=== PATIENT | female | born 1970 | race Caucasian/White ===

== ENCOUNTER → 2018-07-26 09:17 | Outpatient (CLI) | payer BC, SELFPAY ==
[2018-07-26 12:52] LABS: Cholesterol 156 mg/dL (200); High Density Lipoprotein 47 mg/dL; Thyroid Stim Hormone (TSH) 0.95 uIU/mL (0.358-3.74); Triglycerides 63 mg/dL; Very Low Density Lipoprotein 13 mg/dL (5-40)
[2018-07-26 12:54] LABS: Vitamin D,25 Hydroxy 24.2 ng/mL (29.95-100.01)
[2018-08-01 15:48] LABS: HPV HC, High Risk Negative (Negative)
== END ==
PROVIDERS: Visit Provider Obstetrics & Gynecology
DX: E55.9 Vitamin D deficiency, unspecified (principal); R53.83 Other fatigue; Z12.4 Encounter for screening for malignant neoplasm of cervix
CPT/HCPCS: 36415; 80061; 82306; 84443; 87624; 88175; G0145

== ENCOUNTER → 2018-09-29 17:06 | Outpatient (CLI) | payer BC, SELFPAY ==
--- NOTE | 2018-09-29 17:08 | BI_ITS ---
MAMMOGRAPHY - BILATERAL SCREENING REASON FOR EXAM: Female, 48 years old. Routine annual screening examination. PERTINENT HISTORY: Non-contributory. TECHNIQUE: Digital bilateral breast khadra (3D mammographic acquisition) in the CC and MLO projections. 2-D mediolateral oblique (MLO) and craniocaudad (CC) views of both breasts were obtained. CAD: Full Field Digital Mammography with Computer Added Detection was performed. COMPARISON: Comparison is made with prior study dated September 28, 2017. FINDINGS: Breast Composition: The breasts are heterogeneously dense, which may obscure small masses. There are no dominant masses or suspicious calcifications. No other significant abnormalities are identified. There has been no significant change since the prior study. BI/SCREENING MAMM (CAD), BILAT IMPRESSION: Stable bilateral screening mammogram. Yearly follow-up mammogram recommended. (A) ASSESSMENT CATEGORY: BIRADS Category 1: Negative. A letter regarding these results will be sent to the patient by the facility within 30 days. Approximately 10% of breast cancers are not detected by mammography. A normal mammogram should not delay biopsy of a clinically suspicious abnormality. [id number] Electronically Signed: Hima Irby MD at 9:19 EST , Service support ,
== END ==
PROVIDERS: Referring Provider Obstetrics & Gynecology; Visit Provider Obstetrics & Gynecology
DX: Z12.31 Encounter for screening mammogram for malignant neoplasm of breast (principal)
CPT/HCPCS: 77063; 77067

== ENCOUNTER → 2019-08-09 10:06 | Outpatient (CLI) | payer BC, SELFPAY ==
--- NOTE | 2019-08-09 09:30 | CER_PTH ---
PATIENT: KRISTIN IVERSON LOC: [facility] U#:[id number] AGE/SX: 54/F ROOM: RE08/09/[address]: Dr. Arelis Encarnacion MD : 1970 BED: DIS: SPEC #: [id number] RECD: 08/09/19 10:51 STATUS: ARBEN MICHELLE #: [id number] OTTONIEL: 08/09/19 09:[address]: Arelis Tovar DEPT: SURGICAL PATHOLOGY RECD BY: Rolando Navarro ENTERED: 08/09/19 13:37 SP TYPE: CERV OTHR DR: No Primary Care Phys Tissues: Uterine cervix, NOS Procedures: Surgery Specimen Level IV HEADER OPERATION: Cervical polypectomy PRE-OP DIAGNOSIS: Polypectomy TISSUE SUBMITTED: Polypectomy MICROSCOPIC DIAGNOSIS Cervical polypectomy: Inflamed benign ectocervical polyp. SJ:akira 08/10/19 MICROSCOPIC DESCRIPTION Slides are reviewed. GROSS DESCRIPTION Received in fixative is one container labeled with the patient's name and designated polypectomy. The specimen consists of an irregular fragment of echols tissue measuring 0.2 x 0.2 x 0.1 cm. The specimen is totally submitted in one cassette. / AM:akira 08/09/19 TC:5 CPT: [id number]
[2019-08-09 11:14] LABS: Vitamin D,25 Hydroxy 33.2 ng/mL (29.95-100.01)
== END ==
PROVIDERS: Referring Provider Obstetrics & Gynecology; Visit Provider Obstetrics & Gynecology
DX: E55.9 Vitamin D deficiency, unspecified (principal); N84.1 Polyp of cervix uteri
CPT/HCPCS: 36415; 82306; 88305

== ENCOUNTER → 2019-10-16 07:00 | Outpatient (CLI) | payer BC, SELFPAY ==
--- NOTE | 2019-10-16 07:01 | BI_ITS ---
MAMMOGRAPHY - BILATERAL SCREENING REASON FOR EXAM: Female, 49 years old. Routine annual screening examination. PERTINENT HISTORY: Non-contributory. TECHNIQUE: Digital bilateral breast ryan (3D mammographic acquisition) in the CC and MLO projections. 2-D mediolateral oblique (MLO) and craniocaudad (CC) views of both breasts were obtained. CAD: Full Field Digital Mammography with Computer Added Detection was performed. COMPARISON: Comparison is made with prior study dated September 29, 2018 and September 28, 2017. FINDINGS: Breast Composition: The breasts are heterogeneously dense, which may obscure small masses. There are no dominant masses or suspicious calcifications. No other significant abnormalities are identified. There has been no significant change since the prior study. BI/SCREEN MAMM (CAD) W/RYAN BILAT IMPRESSION: Stable bilateral screening mammogram. Yearly follow-up mammogram recommended. (A) ASSESSMENT CATEGORY: BIRADS Category 1: Negative. A letter regarding these results will be sent to the patient by the facility within 30 days. Approximately 10% of breast cancers are not detected by mammography. A normal mammogram should not delay biopsy of a clinically suspicious abnormality. [id number] Electronically Signed: Hima Irby, at 9:05 EST , Service support ,
== END ==
PROVIDERS: Referring Provider Obstetrics & Gynecology; Visit Provider Obstetrics & Gynecology
DX: Z12.31 Encounter for screening mammogram for malignant neoplasm of breast (principal)
CPT/HCPCS: 77063; 77067

== ENCOUNTER → 2020-03-30 09:54 | Outpatient (CLI) | payer BC, SELFPAY ==
[2020-03-30 10:07] LABS: Absolute Lymphocyte Count 1.28 X10^3/uL (0.83-4.51); Absolute Neutrophil Count 2.6 X10^3/uL (2.0-7.7); Basophil# 0.04 X10^3/uL; Basophil% 0.9 % (0-1); Eosinophil# 0.15 X10^3/uL; Eosinophils% 3.4 % (0-5); Hematocrit 41.5 % (37-47); Hemoglobin 14.1 g/dL (12.0-15.0); Lymphocyte # 1.28 X10^3/ul (4.0); Lymphocyte % 28.8 % (19-41); Mean Corpuscular Hgb 31.8 pg (27.0-32.0); Mean Corpuscular Volume 93.5 fL (81-99); Mean Platelet Vol. 9.8 fl (6.2-12.0); Monocyte# 0.41 X10^3/uL; Monocyte% 9.2 % (0-10); NRBC Flagged by Analyzer 0 % (0-5); Neutrophil # 2.56 X10^3/uL (2.7-7.7); Neutrophil % 57.5 % (47-70); Platelet Count 255 K/mm3 (150-450); RBC Distribution Width CV 11.9 % (11.6-14.6); RBC Distribution Width SD 40.8 fl (35.1-43.9); Red Blood Count 4.44 M/mm3 (4.2-5.4); White Blood Count 4.5 K/mm3 (4.4-11.0)
[2020-03-30 10:41] LABS: ALB/GLOB Ratio 1.2 RATIO (0.9-2.4); AST(SGOT) 7 U/L (15-37); Alanine Aminotransfer ALT/SGPT 13 U/L (13-56); Albumin, Serum 3.8 g/dL (3.2-5.0); Alkaline Phosphatase 52 U/L (45-117); Anion Gap 5 (5-15); BUN 10 mg/dL (7-18); BUN/Creat Ratio 10.5 RATIO (10-20); Calcium,Total 8.4 mg/dL (8.5-10.1); Chloride 106 mmol/L (98-107); Cholesterol 174 mg/dL (200); Creatinine, Serum 0.95 mg/dL (0.55-1.02); EST Glomerular Filtration Rate 66 mL/min (>60); Est Glom Filt Rate - Afr Amer 80 mL/min (>60); Globulin 3.1 g/dL (2.2-4.2); Glucose 101 mg/dL (74-106); High Density Lipoprotein 54 mg/dL; Potassium 3.9 mmol/L (3.5-5.1); Protein, Total 6.9 g/dL (6.4-8.2); Sodium Level 139 mmol/L (136-145); T4 Total, Thyroxin 8.3 ug/dL (4.8-13.9); Thyroid Stim Hormone (TSH) 1.07 uIU/mL (0.358-3.74); Triglycerides 48 mg/dL; Very Low Density Lipoprotein 10 mg/dL (5-40)
== END ==
PROVIDERS: PCP Family Medicine; Referring Provider Family Medicine; Visit Provider Family Medicine
DX: R53.83 Other fatigue (principal); E78.00 Pure hypercholesterolemia, unspecified
CPT/HCPCS: 36415; 80053; 80061; 84436; 84443; 84480; 85025

== ENCOUNTER → 2020-10-16 09:38 | Outpatient (CLI) | payer BC, SELFPAY ==
[2020-10-16 10:25] LABS: ALB/GLOB Ratio 1.3 RATIO (0.9-2.4); AST(SGOT) 7 U/L (15-37); Alanine Aminotransfer ALT/SGPT 12 U/L (13-56); Albumin, Serum 3.9 g/dL (3.2-5.0); Alkaline Phosphatase 52 U/L (45-117); Anion Gap 4 (5-15); BUN 10 mg/dL (7-18); BUN/Creat Ratio 10.7 RATIO (10-20); Calcium,Total 8.9 mg/dL (8.5-10.1); Chloride 106 mmol/L (98-107); Creatinine, Serum 0.93 mg/dL (0.55-1.02); EST Glomerular Filtration Rate 68 mL/min (>60); Est Glom Filt Rate - Afr Amer 82 mL/min (>60); Globulin 3.1 g/dL (2.2-4.2); Glucose 101 mg/dL (74-106); Potassium 3.8 mmol/L (3.5-5.1); Sodium Level 138 mmol/L (136-145)
[2020-10-16 10:31] LABS: Hemoglobin A1c 5.2 % (3.8-5.6)
[2020-10-18 21:01] LABS: HPV APTIMA, High Risk Negative (Negative)
== END ==
PROVIDERS: PCP Family Medicine; Visit Provider Obstetrics & Gynecology
DX: Z12.4 Encounter for screening for malignant neoplasm of cervix (principal); Z13.1 Encounter for screening for diabetes mellitus
CPT/HCPCS: 36415; 80053; 83036; 87624; 88175; G0145

== ENCOUNTER → 2020-10-23 15:01 | Outpatient (CLI) | payer BC, SELFPAY ==
--- NOTE | 2020-10-23 15:03 | BI_ITS ---
MAMMOGRAPHY - BILATERAL SCREENING REASON FOR EXAM: Female, 50 years old. Routine annual screening examination. PERTINENT HISTORY: Non-contributory. TECHNIQUE: Digital bilateral breast ryan (3D mammographic acquisition) in the CC and MLO projections. 2-D mediolateral oblique (MLO) and craniocaudad (CC) views of both breasts were obtained. CAD: Full Field Digital Mammography with Computer Added Detection was performed. COMPARISON: Comparison is made with prior study dated 10/16/2019 and 09/29/2018. FINDINGS: Breast Composition: The breasts are heterogeneously dense, which may obscure small masses. There are no dominant masses or suspicious calcifications. No other significant abnormalities are identified. There has been no significant change since the prior study. BI/SCRN MAMM (CAD)W/RYAN BILAT IMPRESSION: Stable bilateral screening mammogram. Yearly follow-up mammogram recommended. (A) ASSESSMENT CATEGORY: BIRADS Category 1: Negative. A letter regarding these results will be sent to the patient by the facility within 30 days. Approximately 10% of breast cancers are not detected by mammography. A normal mammogram should not delay biopsy of a clinically suspicious abnormality. [id number] Electronically Signed: Hima Irby MD at 15:39 EST , Service support ,
== END ==
PROVIDERS: PCP Family Medicine; Referring Provider Obstetrics & Gynecology; Visit Provider Obstetrics & Gynecology
DX: Z12.31 Encounter for screening mammogram for malignant neoplasm of breast (principal)
CPT/HCPCS: 77063; 77067

== ENCOUNTER 2021-10-24 14:56 | Outpatient (CLI) | payer BC, SELFPAY ==
[2021-10-24 16:04] LABS: Estradiol 37.1 pg/mL
== END 2021-10-24 23:59 | disposition home or self-care (01) ==
LOC: LABSPEC 14:57
PROVIDERS: PCP Family Medicine; Visit Provider Obstetrics & Gynecology
DX: N91.2 Amenorrhea, unspecified (principal)
CPT/HCPCS: 82670; 83001

== ENCOUNTER 2021-11-12 10:51 | Outpatient (CLI) | payer BC, SELFPAY ==
--- NOTE | 2021-11-12 10:53 | BI_ITS ---
MAMMOGRAPHY - BILATERAL SCREENING REASON FOR EXAM: Female, 51 years old. Routine annual screening examination. PERTINENT HISTORY: Non-contributory. TECHNIQUE: Digital bilateral breast ryan (3D mammographic acquisition) in the CC and MLO projections. 2-D mediolateral oblique (MLO) and craniocaudad (CC) views of both breasts were obtained. CAD: Full Field Digital Mammography with Computer Added Detection was performed. COMPARISON: Comparison is made with prior study dated 10/23/2020 and 10/16/2019 FINDINGS: Breast Composition: The breasts are heterogeneously dense, which may obscure small masses. There are no dominant masses or suspicious calcifications. No other significant abnormalities are identified. There has been no significant change since the prior study. BI/SCRN MAMM (CAD)W/RYAN BILAT IMPRESSION: Stable bilateral screening mammogram. Yearly follow-up mammogram recommended. (A) ASSESSMENT CATEGORY: BIRADS Category 1: Negative. A letter regarding these results will be sent to the patient by the facility within 30 days. Approximately 10% of breast cancers are not detected by mammography. A normal mammogram should not delay biopsy of a clinically suspicious abnormality. [id number] Electronically Signed: Hima Irby MD at 12:00 EST ,
== END 2021-11-12 23:59 | disposition home or self-care (01) ==
LOC: OPBI 10:51
PROVIDERS: PCP Family Medicine; Visit Provider Obstetrics & Gynecology
DX: Z12.31 Encounter for screening mammogram for malignant neoplasm of breast (principal)
CPT/HCPCS: 77063; 77067

== ENCOUNTER → 2022-12-30 | Outpatient (CLI) | payer BC, SELFPAY ==
--- NOTE | 2022-12-30 15:14 | BI_ITS ---
MAMMOGRAPHY - BILATERAL SCREENING REASON FOR EXAM: Female, 52 years old. Routine annual screening examination. PERTINENT HISTORY: Non-contributory. TECHNIQUE: Digital bilateral breast ryan (3D mammographic acquisition) in the CC and MLO projections. 2-D mediolateral oblique (MLO) and craniocaudad (CC) views of both breasts were obtained. CAD: Full Field Digital Mammography with Computer Added Detection was performed. COMPARISON: Comparison is made with prior study dated November 12, 2021 and October 23, 2020. FINDINGS: Breast Composition: The breasts are heterogeneously dense, which may obscure small masses. There are no dominant masses or suspicious calcifications. No other significant abnormalities are identified. There has been no significant change since the prior study. BI/SCRN MAMM (CAD)W/RYAN BILAT IMPRESSION: Stable bilateral screening mammogram. Yearly follow-up mammogram recommended. (A) ASSESSMENT CATEGORY: BIRADS Category 1: Negative. A letter regarding these results will be sent to the patient by the facility within 30 days. Approximately 10% of breast cancers are not detected by mammography. A normal mammogram should not delay biopsy of a clinically suspicious abnormality. [id number] Electronically Signed: Hima Irby MD at 8:39 EDT ,
== END | disposition home or self-care (01) ==
LOC: OPBI 15:11
PROVIDERS: PCP Family Medicine; Referring Provider Obstetrics & Gynecology; Visit Provider Obstetrics & Gynecology
DX: Z12.31 Encounter for screening mammogram for malignant neoplasm of breast (principal)
CPT/HCPCS: 77063; 77067

== ENCOUNTER → 2023-01-22 | Outpatient (CLI) | payer BC, SELFPAY ==
[2023-01-22 10:35] LABS: Hematocrit 43.2 % (37-47); Hemoglobin 14.5 g/dL (12.0-15.0); Mean Corp Hgb Conc 33.6 g/dL (32-36); Mean Corpuscular Hgb 31.3 pg (27.0-32.0); Mean Corpuscular Volume 93.3 fL (81-99); Mean Platelet Vol. 10.3 fl (6.2-12.0); Platelet Count 274 K/mm3 (150-450); RBC Distribution Width SD 41.5 fl (35.1-43.9); Red Blood Count 4.63 M/mm3 (4.2-5.4); White Blood Count 4.5 K/mm3 (4.4-11.0)
[2023-01-22 11:04] LABS: Vitamin D,25 Hydroxy 36.4 ng/mL
[2023-01-22 11:16] LABS: ALB/GLOB Ratio 1.2 RATIO (0.9-2.4); AST(SGOT) 12 U/L (15-37); Alanine Aminotransfer ALT/SGPT 17 U/L (13-56); Albumin, Serum 3.8 g/dL (3.2-5.0); Alkaline Phosphatase 50 U/L (45-117); Anion Gap 4 (5-15); BUN 13 mg/dL (7-18); BUN/Creat Ratio 14.2 RATIO (10-20); Calcium,Total 8.6 mg/dL (8.5-10.1); Chloride 108 mmol/L (98-107); Cholesterol 179 mg/dL (200); Creatinine, Serum 0.92 mg/dL (0.55-1.02); EST Glomerular Filtration Rate 68 mL/min (>60); Est Glom Filt Rate - Afr Amer 83 mL/min (>60); Globulin 3.2 g/dL (2.2-4.2); Glucose 102 mg/dL (74-106); High Density Lipoprotein 59 mg/dL; Potassium 4.1 mmol/L (3.5-5.1); Sodium Level 138 mmol/L (136-145); Triglycerides 48 mg/dL; Very Low Density Lipoprotein 10 mg/dL (5-40)
[2023-01-22 11:23] LABS: Hemoglobin A1c 5.3 % (3.8-5.6)
== END | disposition home or self-care (01) ==
LOC: LAB 08:47
PROVIDERS: Referring Provider Obstetrics & Gynecology; Visit Provider Obstetrics & Gynecology
DX: R79.89 Other specified abnormal findings of blood chemistry (principal); Z13.220 Encounter for screening for lipoid disorders; Z13.1 Encounter for screening for diabetes mellitus; Z13.228 Encounter for screening for other metabolic disorders
CPT/HCPCS: 36415; 80053; 80061; 82306; 83036; 85027

== ENCOUNTER → 2024-06-02 | Outpatient (CLI) | payer BC, SELFPAY ==
--- NOTE | 2024-06-02 10:53 | BI_ITS ---
MAMMOGRAPHY - BILATERAL SCREENING REASON FOR EXAM: Female, 53 years old. Routine annual screening examination. PERTINENT HISTORY: Non-contributory. TECHNIQUE: Digital bilateral breast ryan (3D mammographic acquisition) in the CC and MLO projections. 2-D mediolateral oblique (MLO) and craniocaudad (CC) views of both breasts were obtained. CAD: Full Field Digital Mammography with Computer Added Detection was performed. COMPARISON: Comparison is made with prior study dated December 30, 2022. FINDINGS: Breast Composition: There are scattered areas of fibroglandular density. There are no dominant masses or suspicious calcifications. No other significant abnormalities are identified. There has been no significant change since the prior study. BI/SCRN MAMM (CAD)W/RYAN BILAT IMPRESSION: Stable bilateral screening mammogram. Yearly follow-up mammogram recommended. (A) ASSESSMENT CATEGORY: BIRADS Category 1: Negative. A letter regarding these results will be sent to the patient by the facility within 30 days. Approximately 10% of breast cancers are not detected by mammography. A normal mammogram should not delay biopsy of a clinically suspicious abnormality. [id number] Electronically Signed: Hima Irby MD at 12:10 EDT ,
== END | disposition home or self-care (01) ==
LOC: OPBI 10:51
PROVIDERS: Referring Provider Obstetrics & Gynecology; Visit Provider Obstetrics & Gynecology
DX: Z12.31 Encounter for screening mammogram for malignant neoplasm of breast (principal)
CPT/HCPCS: 77063; 77067